=== PATIENT | female | born 1965 | race Caucasian/White ===

== ENCOUNTER → 2016-11-28 | Outpatient (CLI) | payer OTHER ==
--- NOTE | 2016-11-29 11:09 | MM ---
Reason for exam: screening (asymptomatic). Last mammogram was performed 1 year ago. History: Patient is postmenopausal. Physical Findings: A clinical breast exam by your physician is recommended on an annual basis and results should be correlated with mammographic findings. MG Screening Mammo w CAD Bilateral CC and MLO view(s) were taken. Prior study comparison: December 01, 2015, bilateral MG screening mammo w CAD. November 25, 2014, bilateral MG screening mammo w CAD. November 15, 2013, bilateral MG screening mammo w CAD. The breast tissue is heterogeneously dense. This may lower the sensitivity of mammography. Finding: There are typically benign round calcifications in both breasts. There is no discrete abnormality. ASSESSMENT: Benign, BI-RAD 2 RECOMMENDATION: Routine screening mammogram of both breasts in 1 year.
== END | disposition home or self-care (01) ==
LOC: RADMAMWWP 17:02
PROVIDERS: ATTEND Family Medicine
DX: Z12.31 Encounter for screening mammogram for malignant neoplasm of breast (principal)

== ENCOUNTER → 2018-07-05 | Outpatient (CLI) | payer OTHER ==
--- NOTE | 2018-07-05 10:52 | US ---
EXAMINATION TYPE: US abdomen complete DATE OF EXAM: 07/05/2018 COMPARISON: NONE CLINICAL HISTORY: R10.811 Right upper quadrant abdominal tenderness. EXAM MEASUREMENTS: Liver Length: 11.1 cm Gallbladder Wall: Surgically absent cm CBD: 0.4 cm Spleen: 8.9 cm Right Kidney: 10.4 x 3.8 x 5.1 cm Left Kidney: 9.5 x 4.8 x 5.3 cm Pancreas: visualized portions wnl Liver: wnl Gallbladder: Surgically absent CBD: wnl Spleen: wnl Right Kidney: No hydronephrosis or masses seen Left Kidney: No hydronephrosis or masses seen Upper IVC: wnl Abd Aorta: wnl The visualized liver is homogenous. The intrahepatic portion of the IVC and visualized abdominal aor ta through bifurcation are within normal limits. Gallbladder is surgically absent. Common bile duct is unremarkable. The visualized portions of the pancreas are homogenous. The spleen is unremarkable . Kidneys are symmetric and free of hydronephrosis. No renal lesions are seen. IMPRESSION: Unremarkable study.
--- NOTE | 2018-07-05 12:15 | XR ---
EXAMINATION TYPE: XR ribs RT DATE OF EXAM: 07/05/2018 COMPARISON: 07/31/2015 HISTORY: 53-year-old female right rib pain, sprain of ribs TECHNIQUE: 4 views FINDINGS: Mild degenerative change at the AC joint. No displaced or healing right rib fracture is seen. Cholecy stectomy clips are present. No pneumothorax or pleural effusion. IMPRESSION: No displaced or healing right rib fracture seen.
== END | disposition home or self-care (01) ==
LOC: RADUSWWP 10:15
PROVIDERS: ATTEND Family Medicine
DX: R10.811 Right upper quadrant abdominal tenderness (principal); S23.41XA Sprain of ribs, initial encounter
CPT/HCPCS: 76700

== ENCOUNTER → 2018-08-08 | Outpatient (CLI) | payer OTHER ==
--- NOTE | 2018-08-10 08:14 | MM ---
Reason for exam: screening (asymptomatic). Last mammogram was performed 1 year and 8 months ago. History: Patient is postmenopausal. Physical Findings: A clinical breast exam by your physician is recommended on an annual basis and results should be correlated with mammographic findings. MG Screening Mammo w CAD Bilateral CC and MLO view(s) were taken. Prior study comparison: November 28, 2016, bilateral MG screening mammo w CAD. December 01, 2015, bilateral MG screening mammo w CAD. The breast tissue is extremely dense which could obscure a lesion on mammography. No significant changes when compared with prior studies. ASSESSMENT: Benign, BI-RAD 2 RECOMMENDATION: Routine screening mammogram of both breasts in 1 year.
== END | disposition home or self-care (01) ==
LOC: RADMAMWWP 14:47
PROVIDERS: ATTEND Obstetrics & Gynecology
DX: Z12.31 Encounter for screening mammogram for malignant neoplasm of breast (principal)
CPT/HCPCS: 77067

== ENCOUNTER → 2018-11-23 | Outpatient (CLI) | payer OTHER ==
--- NOTE | 2018-11-23 13:36 | US ---
EXAMINATION TYPE: US venous doppler duplex LE LT DATE OF EXAM: 11/23/2018 9:02 AM COMPARISON: NONE CLINICAL HISTORY: R22.42 localized swelling/mass/lump LLL. SIDE PERFORMED: Left TECHNIQUE: The lower extremity deep venous system is examined utilizing real time linear array sonog destiny with graded compression, doppler sonography and color-flow sonography. VESSELS IMAGED: Common Femoral Vein Deep Femoral Vein Greater Saphenous Vein * Femoral Vein Popliteal Vein Small Saphenous Vein * Proximal Calf Veins (* superficial vessels) At palpable left anterior thigh: hypoechoic fluid area is noted = 13.8 x 1.6 x 1.3cm Left Leg: Negative for DVT IMPRESSION: No evidence of deep venous thrombosis. There is elongated complex fluid collection in the anterior thigh in the area of palpable concern that could be a hematoma.
== END | disposition home or self-care (01) ==
LOC: RADUSMAIN 08:11
PROVIDERS: ATTEND Family Medicine
DX: R22.42 Localized swelling, mass and lump, left lower limb (principal)

== ENCOUNTER → 2019-12-10 | Outpatient (CLI) | payer OTHER ==
--- NOTE | 2019-12-12 11:02 | MM ---
Reason for exam: screening (asymptomatic). Last mammogram was performed 1 year and 4 months ago. History: Patient is postmenopausal. Physical Findings: A clinical breast exam by your physician is recommended on an annual basis and results should be correlated with mammographic findings. MG Screening Mammo w CAD Bilateral CC and MLO view(s) were taken. Prior study comparison: August 08, 2018, bilateral MG screening mammo w CAD. November 28, 2016, bilateral MG screening mammo w CAD. The breast tissue is heterogeneously dense. This may lower the sensitivity of mammography. There are benign appearing round calcifications bilaterally. There is no discrete abnormality. ASSESSMENT: Benign, BI-RAD 2 RECOMMENDATION: Routine screening mammogram of both breasts in 1 year.
== END | disposition home or self-care (01) ==
LOC: RADMAMWWP 10:00
PROVIDERS: ATTEND Obstetrics & Gynecology
DX: Z12.31 Encounter for screening mammogram for malignant neoplasm of breast (principal)
CPT/HCPCS: 77067

== ENCOUNTER → 2020-04-03 | Outpatient (CLI) | payer OTHER ==
--- NOTE | 2020-04-03 13:51 | CTL ---
EXAMINATION TYPE: CT Low Dose Lung DATE OF EXAM ORDERED: 04/03/2020 HISTORY: Personal history of tobacco use. Lung cancer screening CT DLP: 86.[address] CTDI: 2.1 mGy Automated exposure control for dose reduction was used. SCREENING VISIT: Yes COMPARISON: None TECHNIQUE: Low dose computed tomography scan was performed through the chest at 1 mm thick sections a nd reconstructed images in the coronal plane at [address] DIAGNOSTIC QUALITY: Satisfactory FINDINGS: LUNG NODULES: Present, detailed below: Left lower lobe 4 mm solid nodule (4:227). LUNGS: COPD: Severity: None Fibrosis: Severity: None Lymph nodes: None Other findings: None RIGHT PLEURAL SPACE: Effusion: None Calcification: None Thickening: None Pneumothorax: None LEFT PLEURAL SPACE: Effusion: None Calcification: None Thickening: None Pneumothorax: None HEART: Heart Size: Normal Coronary calcification: None Pericardial effusion: None OTHER FINDINGS: Upper abdomen: None Bony thorax: Degenerative changes of the spine Supraclavicular region: Normal Other: None IMPRESSION: 4 mm solid pulmonary nodule of the left lower lobe. FOLLOW UP CT CHEST RECOMMENDATION: Annual CT low dose lung screening CT LUNG RAD: Lung-Rad 2 Benign Appearance or Behavior
== END | disposition home or self-care (01) ==
LOC: RADCTMAIN 11:47
PROVIDERS: ATTEND Family Medicine
DX: Z12.2 Encounter for screening for malignant neoplasm of respiratory organs (principal); R91.1 Solitary pulmonary nodule; F17.210 Nicotine dependence, cigarettes, uncomplicated

== ENCOUNTER → 2021-03-23 | Outpatient (CLI) | payer OTHER ==
--- NOTE | 2021-03-25 11:45 | MM ---
Reason for exam: screening (asymptomatic). Last mammogram was performed 1 year and 3 months ago. History: Patient is postmenopausal. Took hormonal contraceptives for 5 years. Physical Findings: A clinical breast exam by your physician is recommended on an annual basis and results should be correlated with mammographic findings. MG Screening Mammo w CAD Bilateral CC and MLO view(s) were taken. Prior study comparison: December 10, 2019, bilateral MG screening mammo w CAD. August 08, 2018, bilateral MG screening mammo w CAD. November 28, 2016, bilateral MG screening mammo w CAD. No significant changes when compared with prior studies. ASSESSMENT: Benign, BI-RAD 2 RECOMMENDATION: Routine screening mammogram of both breasts in 1 year.
== END | disposition home or self-care (01) ==
LOC: RADMAMWWP 14:23
PROVIDERS: ATTEND Obstetrics & Gynecology
DX: Z12.31 Encounter for screening mammogram for malignant neoplasm of breast (principal)
CPT/HCPCS: 77067

== ENCOUNTER → 2022-03-24 | Outpatient (CLI) | payer MEDICARE, OTHER ==
--- NOTE | 2022-03-25 09:19 | MM ---
Reason for Exam: Screening (asymptomatic). Last screening mammogram was performed 12 month(s) ago. Patient History: Menarche at age 13. First Full-Term at age 25. Postmenopausal. Patient used Hormonal Contraceptives for 5 years. Risk Values: Evelina 5 year model risk: 1.4%. NCI Lifetime model risk: 7.8%. Prior Study Comparison: 08/08/2018 Bilateral Screening Mammogram, [facility]. 12/10/2019 Bilateral Screening Mammogram, [facility]. 03/23/2021 Bilateral Screening Mammogram, [facility]. Tissue Density: The breast tissue is heterogeneously dense. This may lower the sensitivity of mammography. Findings: Analyzed By CAD. Some scattered benign-appearing round calcifications bilaterally are redemonstrated. Benign-appearing bilateral axillary lymph nodes are again seen. There is no suspicious new group of microcalcifications or new distortion in either breast. Overall Assessment: Benign, BI-RAD 2 Management: Screening Mammogram of both breasts in 1 year. A clinical breast exam by your physician is recommended on an annual basis and results should be correlated with mammographic findings. Electronically signed and approved by: Israel Soriano M.D.
== END | disposition home or self-care (01) ==
LOC: RADMAMWWP 10:54
PROVIDERS: ATTEND Obstetrics & Gynecology
DX: Z12.31 Encounter for screening mammogram for malignant neoplasm of breast (principal)
CPT/HCPCS: 77067

== ENCOUNTER → 2022-07-28 | Outpatient (CLI) | payer MEDICARE, OTHER ==
--- NOTE | 2022-07-28 11:23 | US ---
EXAMINATION TYPE: US abdomen complete DATE OF EXAM: 07/28/2022 COMPARISON: NONE CLINICAL HISTORY: R10.11 RIGHT UPPER QUADRANT PAIN. Cholecystectomy, IBS, RUQ pain TECHNIQUE: Multiple sonographic images of the abdomen are obtained. FINDINGS: EXAM MEASUREMENTS: Liver Length: 11.4 cm Gallbladder Wall: Surgically absent CBD: 0.4 cm Spleen: 9.2 cm Right Kidney: 10.6 x 4.3 x 3.8 cm Left Kidney: 10.4 x 4.9 x 4.7 cm Pancreas: Obscured by bowel gas Liver: wnl Gallbladder: Surgically absent Evidence for sonographic Reid's sign: no CBD: wnl Spleen: wnl Right Kidney: Hypoechoic focus mid kidney measuring 0.6 cm Left Kidney: no evidence of hydronephrosis Upper IVC: wnl Abd Aorta: wnl The liver is homogenous. The intrahepatic portion of the IVC and proximal abdominal aorta are within normal limits. There is no evidence of cholelithiasis. Common bile duct is unremarkable. The visu alized portions of the pancreas are homogenous. The spleen is unremarkable. Kidneys are symmetric a nd free of hydronephrosis. No renal lesions are seen. IMPRESSION: 1. Right nonobstructing renal calculus versus prominent renal sinus fat. 2. No evidence of obstructive uropathy. 3. No evidence for acute process.
== END | disposition home or self-care (01) ==
LOC: RADUSWWP 10:27
PROVIDERS: ATTEND Family Medicine
DX: R10.11 Right upper quadrant pain (principal); Z90.49 Acquired absence of other specified parts of digestive tract
CPT/HCPCS: 76700

== ENCOUNTER → 2023-04-04 | Outpatient (CLI) | payer MEDICARE, OTHER ==
--- NOTE | 2023-04-05 09:27 | MM ---
Reason for Exam: Screening (asymptomatic). Last mammogram was performed 1 year(s) and 1 month(s) ago. Patient History: Menarche at age 13. First Full-Term at age 25. Postmenopausal. Patient used Hormonal Contraceptives for 5 years. Risk Values: Evelina 5 year model risk: 1.4%. NCI Lifetime model risk: 7.6%. Prior Study Comparison: 12/10/2019 Bilateral Screening Mammogram, [facility]. 03/23/2021 Bilateral Screening Mammogram, [facility]. 03/24/2022 Bilateral MG screening mammo w CAD, [facility]. Tissue Density: The breast tissue is heterogeneously dense. This may lower the sensitivity of mammography. Findings: Analyzed By CAD. There is no suspicious group of microcalcifications or new suspicious mass in either breast. Overall Assessment: Benign, BI-RAD 2 Management: Screening Mammogram of both breasts in 1 year. . Patient should continue monthly self-breast exams. A clinical breast exam by your physician is recommended on an annual basis. This exam should not preclude additional follow-up of suspicious palpable abnormalities. Note on Evelina scores and lifetime risk: 1. A Evelina score greater than 3% is considered moderate risk. If this is the case, consider specialist referral to assess eligibility for a risk reducing agent. 2. If overall lifetime risk for the development of breast cancer is 20% or higher, the patient may qualify for future screening with alternating mammogram and breast MRI. Electronically signed and approved by: Chase Hardin M.D. Radiologis
== END | disposition home or self-care (01) ==
LOC: RADMAMWWP 13:18
PROVIDERS: ATTEND Obstetrics & Gynecology
DX: Z12.31 Encounter for screening mammogram for malignant neoplasm of breast (principal); N63.0 Unspecified lump in unspecified breast; Z78.0 Asymptomatic menopausal state
CPT/HCPCS: 77067

== ENCOUNTER → 2023-05-05 | Outpatient (CLI) | payer MEDICARE, OTHER ==
--- NOTE | 2023-05-05 12:53 | CT ---
EXAMINATION TYPE: CT abdomen pelvis wo con DATE OF EXAM: 05/05/2023 COMPARISON: None HISTORY: right flank pain, h/o renal stones CT DLP: 745 mGycm Automated exposure control for dose reduction was used. TECHNIQUE: Helical acquisition of images was performed from the lung bases through the pelvis. FINDINGS: The lung bases are clear. There are surgical absence of gallbladder. There is no organomegaly involving the liver, pancreas, spleen or adrenal glands. There are tiny solitario-like calcifications in both kidneys which are nonobstructing, one in the left an d 2 to 3 on the right.. Caliber the abdominal aorta is normal and no retroperitoneal adenopathy or hemorrhage. The bowel loops are normal in caliber and there is no dilatation or obstruction. No inflammatory holt ges are identified in the bowel wall or mesentery. There is no free intraperitoneal air or fluid. No pelvic mass, free fluid, abscess or adenopathy. The osseous structures are intact. IMPRESSION: Tiny nonobstructing renal calcifications described above with no other significant abnormality seen.
== END | disposition home or self-care (01) ==
LOC: RADCTMAIN 11:22
PROVIDERS: ATTEND Urology
DX: N20.0 Calculus of kidney (principal); Z90.49 Acquired absence of other specified parts of digestive tract
CPT/HCPCS: 74176

== ENCOUNTER → 2024-05-09 | Outpatient (CLI) | payer MEDICARE, OTHER ==
--- NOTE | 2024-05-12 22:29 | BD ---
EXAMINATION TYPE: Axial Bone Density DATE OF EXAM: 05/09/2024 CLINICAL HISTORY: 59 years old Female. ICD-10 CODE: Z78.0 [place] , Additional History: Height: 66 Weight: 163.2 FRAX RISK QUESTIONS: Alcohol (3 or more units per day): yes Family History (Parent hip fracture): no Glucocorticoids (More than 3mos): no (Ex: prednisone, prednisolone, methylprednisolone, dexamethasone, and hydrocortisone). History of Fracture in Adulthood: no Secondary Osteoporosis: 1. Type 1 Diabetes: no 2. Hyperthyroidism: no 3. Menopause before 45: no 4. Malnutrition: no 5. Chronic liver disease: no Rheumatoid Arthritis: no Current Tobacco Use: yes RISK FACTORS HISTORY OF: Surgery to Spine/Hip(right/left)/Wrist (right/left): no EXAM MEASUREMENTS: Bone mineral densitometry was performed using the [employer] System. Bone mineral density as measured about the Lumbar spine is: ----- L1-L4(G/cm2): 1.122 T Score Values are as follows: ----- L1: -2.0 ----- L2: -1.1 ----- L3: 0.4 ----- L4: 0.3 ----- L1-L4: -0.5 Z Score Values are as follows: ----- L1: -1.1 ----- L2: -0.2 ----- L3: 1.3 ----- L4: 1.2 ----- L1-L4: 0.4 Bone mineral density : baseline Bone mineral density about the R hip (g/cm2): 0.972 Bone mineral density about the L hip (g/cm2): 0.913 T Score values are as follows: -----R Neck: -0.9 -----L Neck: -1.3 -----R Total: -0.3 -----L Total: -0.8 Z Score values are as follows: -----R Neck: 0.1 -----L Neck: -0.3 -----R Total: 0.4 -----L Total: 0.0 Bone mineral density : baseline FRAX%s: The graph provided illustrates a 9.4% chance for a major osteoporotic fx and a 1.6% chance fo r the hips probability for fx in 10 years time. IMPRESSION: Osteopenia (T Score between -2.5 and -1). There is slightly increased risk of fracture and the patient may be considered for treatment. Re-Screen 2-5 years. NOTE: T-SCORE=SD OF THE YOUNG ADULT MEAN. [facility], , 05/12/2024 10:27 PM
--- NOTE | 2024-05-13 08:48 | MM ---
Reason for Exam: Screening (asymptomatic). Last mammogram was performed 1 year(s) and 1 month(s) ago. Patient History: Menarche at age 13. First Full-Term at age 25. Postmenopausal. Patient used Hormonal Contraceptives for 5 years. Risk Values: Evelina 5 year model risk: 1.5%. NCI Lifetime model risk: 7.4%. Prior Study Comparison: 03/23/2021 Bilateral Screening Mammogram, [facility]. 03/24/2022 Bilateral MG screening mammo w CAD, [facility]. 04/04/2023 Bilateral MG screening mammo w CAD, [facility]. Tissue Density: The breasts are heterogeneously dense, which may obscure small masses. Findings: Analyzed By CAD. Right breast: There is no suspicious group of microcalcifications or new suspicious mass. Benign-appearing calcifications right breast. Left breast: There is no suspicious group of microcalcifications or new suspicious mass. Benign-appearing calcifications left breast. Overall Assessment: Benign, BI-RAD 2 Management: Screening Mammogram of both breasts in [address] [facility] will attempt to contact patient to return for supplemental views and ultrasound if indicated. Patient should continue monthly self-breast exams. A clinical breast exam by your physician is recommended on an annual basis. This exam should not preclude additional follow-up of suspicious palpable abnormalities. Note on Evelina scores and lifetime risk: 1. A Evelina score greater than 3% is considered moderate risk. If this is the case, consider specialist referral to assess eligibility for a risk reducing agent. 2. If overall lifetime risk for the development of breast cancer is 20% or higher, the patient may qualify for future screening with alternating mammogram and breast MRI. [facility], , 05/13/2024 8:45 AM. Electronically signed and approved by: Shakeel Aguayo DO
== END | disposition home or self-care (01) ==
LOC: RADBDWWP 10:32
PROVIDERS: ATTEND Obstetrics & Gynecology
DX: Z12.31 Encounter for screening mammogram for malignant neoplasm of breast (principal); Z78.0 Asymptomatic menopausal state; R92.333 Mammographic heterogeneous density, bilateral breasts; M85.89 Other specified disorders of bone density and structure, multiple sites
CPT/HCPCS: 77063; 77067; 77080

== ENCOUNTER 2024-06-09 18:05 | Emergency (ER) | payer MEDICARE, OTHER ==
[2024-06-09 18:52] VITALS: TEMP 98.3
--- NOTE | 2024-06-09 20:12 | US ---
EXAMINATION TYPE: US venous doppler duplex LE RT DATE OF EXAM: 06/09/2024 8:03 PM COMPARISON: NONE CLINICAL INDICATION: Female, 59 years old with history of leg swelling, factor 5; patient denies any other signs, symptoms, or relevant history , Pain TECHNIQUE: The lower extremity deep venous system is examined utilizing real time linear array sonog destiny with graded compression, color doppler sonography, and spectral doppler. SIDE PERFORMED: Right FINDINGS: VESSELS IMAGED: Common Femoral Vein Deep Femoral Vein Greater Saphenous Vein * Femoral Vein Popliteal Vein Small Saphenous Vein * Proximal Calf Veins (* superficial vessels) Right Leg: Negative for DVT, Color Doppler imaging shows patency of the vessels. Spectral waveforms are within normal limits. IMPRESSION: Right lower extremity ultrasound negative for deep venous thrombosis. [facility], Workstation: [facility], 06/09/2024 8:10 PM
--- NOTE | 2024-06-09 21:35 | XR ---
EXAMINATION TYPE: XR tibia fibula RT DATE OF EXAM: 06/09/2024 9:13 PM COMPARISON: None. CLINICAL INDICATION: Female, 59 years old with history of pain, swelling, TECHNIQUE: 2 view right tibia and fibula view(s) obtained. FINDINGS: No acute fracture or dislocation evident. Soft tissues appear normal. Degenerative joint changes are in the medial compartment of the knee. Ankle mortise appears intact as visualized. Follow up exams can be performed 7-10 days from acute trauma for continued pain IMPRESSION: 1. No acute osseous abnormality right tibia and fibula [facility], Workstation: [facility], 06/09/2024 9:32 PM
--- NOTE | 2024-06-09 21:40 | ED ---
Extremity Problem HPI - General Chief complaint: Extremity Problem,Nontraumatic Stated complaint: R Leg Swelling Time Seen by Provider: 06/09/24 19:00 Source: patient Mode of arrival: ambulatory Limitations: no limitations - History of Present Illness Initial comments: 59-year-old female presents emergency department reporting to right leg swelling and pain. States that she has been moving over the past 3 weeks. She has had a lot of pain in her anterior right calf consistent with shinsplints. Reports that over the past 2 days she began developing increasing warmth, redness and swelling to the right lower extremity. She does have a history of factor V and therefore is concerned for blood clots. Denies a history of DVT or PE. Denies any chest pain or difficulty breathing. She does not take any blood thinners. She denies any fevers. No trauma to the lower extremity. No history of congestive heart failure. No other alleviating, precipitating roughing factors - Related Data Home Medications Medication Instructions Recorded Confirmed HYDROcodone/APAP 7.5-325MG [[place] 1 tab PO Q4H PRN 07/31/15 07/31/15 7.5-325] Previous Rx's Medication Instructions Recorded Amoxicillin 10 ml PO Q8HR #210 ml 07/31/15 cephALEXin [Keflex Oral Susp] 10 ml PO QID #280 ml 06/09/24 Allergies Allergy/AdvReac Type Severity Reaction Status Date / Time iodine Allergy Unknown Unknown Verified 06/09/24 18:47 Childhood Sulfa (Sulfonamide Allergy Unknown Unknown Verified 06/09/24 18:47 Antibiotics) Childhood Review of Systems ROS Statement: Those systems with pertinent positive or pertinent negative responses have been documented in the HPI. ROS Other: All systems not noted in ROS Statement are negative. Past Medical History Past Medical History: Blood Disorder, GERD/Reflux, Osteoarthritis (OA) Additional Past Medical History / Comment(s): degenerative disk disease (5 disks), Factor V leiden, , kidney stones, arthritis in neck, History of Any Multi-Drug Resistant Organisms: None Reported Past Surgical History: Cholecystectomy, Heart Catheterization, Orthopedic Surgery, Tonsillectomy Additional Past Surgical History / Comment(s): conization, two vocal cord surgeries, finished rabies shots 12/27/13 from exposure to a bat, colonoscopy, EGD Past Anesthesia/Blood Transfusion Reactions: Previous Problems w/ Anesthesia, Family History of Problems w/ Anesthesia, Motion Sickness Additional Past Anesthesia/Blood Transfusion Reaction / Comment(s): pt states "careful moving of neck due to disk problems", pt told by ENT doctor that her "esophagus/trachea rubs on spine." family- mother and sister- diff coming out of anesthesia. pt had low BP during surgery. Past Psychological History: Anxiety Smoking Status: Current every day smoker Past Alcohol Use History: Daily Past Drug Use History: None Reported - Past Family History Father Family Medical History: Cancer Mother Family Medical History: Deep Vein Thrombosis (DVT) General Exam Limitations: no limitations General appearance: alert, in no apparent distress Head exam: Present: atraumatic, normocephalic, normal inspection Eye exam: Present: normal appearance, PERRL, EOMI. Absent: scleral icterus, conjunctival injection, periorbital swelling ENT exam: Present: normal exam, mucous membranes moist Neck exam: Present: normal inspection. Absent: tenderness, meningismus, lymphadenopathy Respiratory exam: Present: normal lung sounds bilaterally. Absent: respiratory distress, wheezes, rales, rhonchi, stridor Cardiovascular Exam: Present: regular rate, normal rhythm, normal heart sounds. Absent: systolic murmur, diastolic murmur, rubs, gallop, clicks GI/Abdominal exam: Present: soft, normal bowel sounds. Absent: distended, tenderness, guarding, rebound, rigid Extremities exam: Present: normal capillary refill, pedal edema (Erythema and warmth to the anterior right truong. There is 2+ pedal edema around the right lateral malleolus). Absent: tenderness, joint swelling, calf tenderness Back exam: Present: normal inspection Neurological exam: Present: alert, oriented X3, CN II-XII intact Psychiatric exam: Present: normal affect, normal mood Skin exam: Present: warm, dry, intact, normal color. Absent: rash Course Vital Signs 06/09/24 06/09/24 18:48 21:46 Temperature 98.3 F Pulse Rate 81 95 Respiratory 18 16 Rate Blood Pressure 114/65 111/76 O2 Sat by Pulse 96 95 Oximetry Medical Decision Making - Medical Decision Making Was pt. sent in by a medical professional or institution (, PA, NETWORK ENGINEER ADMINISTRATOR, urgent care, hospital, or [facility]...) When possible be specific @ -No Did you speak to anyone other than the patient for history (EMS, parent, family, police, friend...)? What history was obtained from this source @ -No Did you review nursing and triage notes (agree or disagree)? Why? @ -I reviewed and agree with nursing and triage notes Were old charts reviewed (outside hosp., previous admission, EMS record, old EKG, old radiological studies, urgent care reports/EKG's, [facility] records)? Report findings @ -No old charts were reviewed Differential Diagnosis (chest pain, altered mental status, abdominal pain women, abdominal pain men, vaginal bleeding, weakness, fever, dyspnea, syncope, headache, dizziness, GI bleed, back pain, seizure, CVA, palpatations, mental health, musculoskeletal)? @ -Cellulitis, stress fracture, DVT, superficial thrombophlebitis EKG interpreted by me (3pts min.). @ -Not done X-rays interpreted by me (1pt min.). @ -Yes and demonstrates no fracture CT interpreted by me (1pt min.). @ -None done U/S interpreted by me (1pt. min.). @ -yes, demonstrates no DVT What testing was considered but not performed or refused? (CT, X-rays, U/S, labs)? Why? @ -None What meds were considered but not given or refused? Why? @ -None Did you discuss the management of the patient with other professionals (professionals i.e. , PA, NETWORK ENGINEER ADMINISTRATOR, lab, RT, psych nurse, social sciences chair, forensic document examiner, teacher, examining officer, wrapper caser)? Give summary @ -No Was smoking cessation discussed for >3mins.? @ -No Was critical care preformed (if so, how long)? @ -No Were there social determinants of health that impacted care today? How? (Homelessness, low income, unemployed, alcoholism, drug addiction, transportation, low edu. Level, literacy, decrease access to med. care, prison, rehab)? @ -No Was there de-escalation of care discussed even if they declined (Discuss DNR or withdrawal of care, Hospice)? DNR status @ -No What co-morbidities impacted this encounter? (DM, HTN, Smoking, COPD, CAD, Cancer, CVA, ARF, Chemo, Hep., AIDS, mental health diagnosis, sleep apnea, morbid obesity)? @ -Factor V Leiden Was patient admitted / discharged? Hospital course, mention meds given and route, prescriptions, significant lab abnormalities, going to OR and other pertinent info. @ -Upon arrival patient seen and evaluated in bed 31. Thorough history and physical exam was performed. Ultrasound was performed which does not demonstrate a DVT. I did perform an x-ray due to her report of increased physical activity which does not demonstrate any type of stress fracture. Patient will be treated as a possible cellulitis. She will be placed on antibiotics. Patient states she only takes liquid form of antibiotics and therefore she will be placed on liquid Keflex. Instructed to take the medications as directed. Follow-up with your primary care doctor in 2 to 4 days to ensure that the symptoms are improving and return to the emergency department for any new or worsening symptoms. Patient agreeable plan was discharged home in stable condition Undiagnosed new problem with uncertain prognosis? @ -Yes Drug Therapy requiring intensive monitoring for toxicity (Heparin, Nitro, Insulin, Cardizem)? @ -No Were any procedures done? @ -No Diagnosis/symptom? @ -Acute right lower leg swelling. Evaluation for DVT, history of factor V, possible right lower extremity cellulitis Acute, or Chronic, or Acute on Chronic? @ -Acute Uncomplicated (without systemic symptoms) or Complicated (systemic symptoms)? @ -Complicated Side effects of treatment? @ -Allergic reaction Exacerbation, Progression, or Severe Exacerbation? @ -No Poses a threat to life or bodily function? How? (Chest pain, [place], [place], pneumonia, PE, COPD, DKA, ARF, appy, cholecystitis, CVA, Diverticulitis, Homicidal, Suicidal, threat to staff... and all critical care pts) @ -No Disposition Clinical Impression: Right leg swelling, Cellulitis Disposition: HOME SELF-CARE Condition: Stable Instructions (If sedation given, give patient instructions): Cellulitis (ED) Additional Instructions: Your x-ray and ultrasound was negative. Please take the antibiotics to see if they improve your swelling and redness at all. Follow-up with your primary care doctor in 2 to 4 days and return for any new or worsening symptoms Prescriptions: cephALEXin [Keflex Oral Susp] 10 ml PO QID #280 ml Is patient prescribed a controlled substance at d/c from ED?: No Referrals: Kingston Taylor MD [Primary Care Provider] - 1-2 days Time of Disposition: 21:38
[2024-06-09 21:48] VITALS: BP 111/76; PULSE 95; RESP 16
== END 2024-06-09 21:50 | disposition home or self-care (01) ==
LOC: EC 18:05
DX: L03.115 Cellulitis of right lower limb (principal); Z86.2 Personal history of diseases of the blood and blood-forming organs and certain disorders involving the immune mechanism; F17.200 Nicotine dependence, unspecified, uncomplicated; Z88.2 Allergy status to sulfonamides; Z91.041 Radiographic dye allergy status
CPT/HCPCS: 99284